=== PATIENT | female | born 2000 | race Two or more races ===

== ENCOUNTER 2019-06-07 06:30 | Emergency (ER) | payer MEDICAID, OTHER ==
[~2019-06-07] VITALS: Ht 160 cm; Wt 54.4 kg
--- NOTE | 2019-06-07 06:45 | NUR ---
BIB FRIEND FOR C/O N/V. LMP : MID APRIL. ABOUT 4-5 WKS . PT WAS PLACED ON A MONITOR . VSS. WILL CONT TO MONITOR ,
[2019-06-07] MEDS ORDERED: ONDANSETRON HCL/PF 4 MG/2 ML VIAL ONE (06:57)
[2019-06-07] MEDS ORDERED: IV NS 0.9% 1,000 ML BAG IV ONE (07:00)
[2019-06-07] MEDS ORDERED: ONDANSETRON HCL/PF 4 MG/2 ML VIAL IVP ONE (07:00)
[2019-06-07 07:01] LABS: BASOPHILS # (AUTO) 0.1 /CMM (0.0-0.2); BASOPHILS % (AUTO) 0.4 % (0.0-2.0); EOSINOPHILS % (AUTO) 0.1 % (0.0-6.0); HEMATOCRIT 40 % (33-45); HEMOGLOBIN 13.4 g/dL (11.5-14.8); LYMPHOCYTES # (AUTO) 2.3 /CMM (0.8-4.8); LYMPHOCYTES % (AUTO) 14.4 % (20.0-44.0); MEAN CORPUSCULAR HGB CONC 33 g/dl (31.0-36.0); MEAN CORPUSCULAR VOLUME 94 fL (82-100); MONOCYTES # (AUTO) 0.6 /CMM (0.1-1.30); MONOCYTES % (AUTO) 3.9 % (2.0-12.0); NEUTROPHILS # (AUTO) 12.9 /CMM (1.8-8.9); NEUTROPHILS % (AUTO) 81.2 % (43.0-81.0); PLATELET COUNT (AUTO) 347 /CMM (150-450); RED BLOOD CELL COUNT(AUTO) 4.31 MIL/uL (4.0-5.2); WHITE BLOOD COUNT (AUTO) 15.9 K/uL (4.3-11.0)
[2019-06-07 07:22] LABS: CALCIUM, SERUM 9.9 mg/dL (8.5-10.1); CREATININE 0.7 mg/dL (0.6-1.3); POTASSIUM 3.6 mmol/L (3.5-5.1)
[2019-06-07 07:26] LABS: ALBUMIN 4.5 g/dL (3.4-5.0); BILIRUBIN,DIRECT 0.2 mg/dL (0.0-0.2); TOTAL PROTEIN, SERUM 7.8 g/dL (6.4-8.2)
[2019-06-07] MEDS ORDERED: PYRIDOXINE HCL INJ 100 MG/ML VIAL IV ONE (07:30)
[2019-06-07] MEDS: METOCLOPRAMIDE HCL 10 MG/2 ML VIAL IV ONE ×2 (07:34→08:18)
[2019-06-07] MEDS ORDERED: PYRIDOXINE HCL INJ 100 MG/ML VIAL ONE (07:34)
[2019-06-07] MEDS ORDERED: METOCLOPRAMIDE HCL 10 MG/2 ML VIAL ONE (08:13)
--- NOTE | 2019-06-07 08:46 | NUR ---
Ambulatory with steady gait, denies nausea and vomiting at this time. Patient a/ox4, breathing even and unlabored, no sob noted. IV removed. Catheter intact and site benign. Pressure and 4x4 applied to site. No bleeding noted.Patient discharged to home in stable condition. Written and verbal after care instructions given. Patient verbalizes understanding of instruction.
[2019-06-07 08:48] VITALS: BP 95/53
== END 2019-06-07 08:49 | disposition home or self-care (01) ==
LOC: ER 06:32
DX: O21.8 Other vomiting complicating pregnancy (principal); Z3A.01 Less than 8 weeks gestation of pregnancy
CPT/HCPCS: 36415; 80048; 80076; 83690; 84702; 85025; 96361; 96374; 96375; 99284; A4216; J2405; J2765; J3415; J7030

== ENCOUNTER 2021-03-04 20:16 | Emergency (ER) | payer MEDICAID, OTHER ==
[~2021-03-04] VITALS: Ht 162.6 cm; Wt 59.0 kg
[2021-03-04 20:31] VITALS: BP 128/74
[2021-03-04] MEDS ORDERED: SULF1TAB48 PO (20:44)
[2021-03-04] MEDS ORDERED: CEPH500T PO (20:44)
[2021-03-04] MEDS ORDERED: IBUP-1955 PO (20:44)
[2021-03-04] MEDS ORDERED: CEPHALEXIN MONOHYDRATE 500 MG CAPSULE PO ONE ×2 (20:53→21:00)
[2021-03-04] MEDS ORDERED: SULFAMETH/TRIMETH 800/160 MG 1 UDTAB TABLET ONE (20:54)
[2021-03-04] MEDS ORDERED: TDAP [DIPH/PERTUSSIS/TET] 0.5 ML VIAL IM ONE ×2 (20:54→21:00)
--- NOTE | 2021-03-04 20:58 | NUR ---
Patient discharged to home in stable condition. Written and verbal after care instructions given. Patient verbalizes understanding of instruction. Pt ambulatory with a steady gait
[2021-03-04] MEDS ORDERED: SULFAMETH/TRIMETH 800/160 MG 1 UDTAB TABLET PO ONE (21:00)
== END 2021-03-04 20:58 | disposition home or self-care (01) ==
LOC: ER 20:27
DX: L02.214 Cutaneous abscess of groin (principal)
CPT/HCPCS: 90715